=== PATIENT | female | born 1965 | race Caucasian/White ===

== ENCOUNTER → 2023-06-04 19:44 | Outpatient (CLI) | payer OTHER, SELFPAY ==
--- NOTE | 2023-06-04 | DI.MRI.S_ITS ---
PROCEDURE: MR KNEE LT WO CON INDICATIONS: Pain in left knee TECHNIQUE: Noncontrast sagittal PD fast spin echo and T2 fast spin echo with fat saturation, sagittal 3-D FLASH with fat saturation; coronal T1 spin echo and PD fast spin echo with fat saturation, and axial PD fast spin echo with fat saturation through the knee. COMPARISON: None. FINDINGS: Image quality: Good [place]: Medial: Horizontal tear of the body and posterior horn. Vertical tear of the posterior free edge is also seen (7/10). Lateral: There is a small oblique tear involving the body Cruciate ligaments: Intact Medial structures: MCL: Intact Pes anserine tendons: Intact Semimembranosus: Intact Lateral structures: LCL: Intact Biceps femoris: Intact IT band: Intact Popliteus tendon: Intact Anterior structures: Extensor mechanism: Mild quadriceps insertional tendinopathy and patellar enthesopathy. There is mild prepatellar edema. Fat pads: No pathologic edema Medial retinaculum: Intact. Trochlea: Unremarkable morphology. Bone and joint: Bones: There is iytw-[id number]-ydexxqqs focal edema in the periphery of the medial femoral condyle. Cartilage: There is cartilage flattening in the location of the periphery of the medial femoral condyle. Zybp-ag-lrtqlyeo heterogeneity is seen elsewhere in the lateral and medial compartments. Moderate partial thickness cartilage loss in the patella, without subchondral edema. Joint space: Moderate joint effusion. Sheffield's cyst: Moderate Sheffield's cyst. Soft tissues: No significant vascular or other soft tissue pathology. IMPRESSION: Complex medial meniscal tears as above. Possibly degenerative small tear of the lateral meniscus. Intact cruciate and collateral ligaments. Possible focal contusion in the periphery of the medial femoral condyle, with associated cartilage flattening. Elsewhere, [id number] degenerative changes, without a large area of full-thickness cartilage loss/subchondral edema. Quadriceps insertional tendinopathy and patellar enthesopathy. Moderate joint effusion and Sheffield's cyst. Dictated by: Jose Dale M.D. on 06/05/2023 at 8:38 Approved by: Jose Dale M.D. on 06/05/2023 at 8:44
== END ==
PROVIDERS: PCP Family Medicine; Referring Provider Family Medicine; Visit Provider Family Medicine
DX: S83.232A Complex tear of medial meniscus, current injury, left knee, initial encounter (principal); S83.282A Other tear of lateral meniscus, current injury, left knee, initial encounter; M71.22 Synovial cyst of popliteal space [Baker], left knee; M25.462 Effusion, left knee; M25.562 Pain in left knee; G89.29 Other chronic pain
CPT/HCPCS: 73721